=== PATIENT | male | born 1990 | race Two or more races ===

== ENCOUNTER → 2017-05-08 | Outpatient (CLI) | payer OTHER | END | disposition home or self-care (01) | LOC: RD 11:12 | DX: M25.531 Pain in right wrist (principal) ==

== ENCOUNTER → 2017-05-28 | Outpatient (CLI) | payer OTHER | END | disposition home or self-care (01) | LOC: MI 14:48 | PROC: BP3LZZZ Magnetic Resonance Imaging (MRI) of Right Wrist (ICD-10-PCS; principal; 2017-05-28) | DX: M25.531 Pain in right wrist (principal) ==